=== PATIENT | male | born 1965 | race Caucasian/White ===

== ENCOUNTER 2016-05-02 12:02 | Emergency (ER) | payer OTHER ==
[~2016-05-02] VITALS: Ht 177.8 cm; Wt 99.9 kg
[2016-05-02 12:13] VITALS: TEMP 37.5; Ht 177.8 cm; Wt 99.9 kg
[2016-05-02 12:44] LABS: BASO % 0.2 %; BASO ABS # 0.02 K/uL (0-0.2); COMPLETE YES; EOS % 2.3 %; HEMATOCRIT 42.9 % (42-52); IG% 0.2 %; LYMPH % 12.4 %; LYMPH ABS # 1.32 K/uL (1.2-3.4); MEAN CELL VOLUME 90.7 fL (80-100); MEAN CORPUSCULAR HEMOGLOBIN 31.3 pg (25-34); MEAN CORPUSCULAR HGB CONC 34.5 g/dl (32-36); MEAN PLATELET VOLUME 10.8 fL (7.4-10.4); MONO % 8.6 %; NEUT % 76.3 %; PLATELET COUNT 242 K/uL (130-400); RED BLOOD COUNT 4.73 M/uL (4.7-6.1); WHITE BLOOD COUNT 10.61 K/uL (4.8-10.8)
[2016-05-02] MEDS ORDERED: METR-163 PO (12:46)
[2016-05-02] MEDS ORDERED: MOXI400T2 PO (12:46)
[2016-05-02 12:50] LABS: CALCIUM 8.4 mg/dl (8.5-10.1); CREATININE 0.92 mg/dl (0.60-1.40); POTASSIUM 3.6 mmol/L (3.5-5.1)
[2016-05-02] MEDS ORDERED: OPTIRAY 320 IV PRN (13:00)
[2016-05-02 13:19] LABS: URINE APPEARANCE CLEAR (CLEAR); URINE BILIRUBIN NEG (NEG); URINE COLOR YELLOW; URINE NITRITE NEG (NEG); URINE SPECIFIC GRAVITY 1.021 (1.000-1.030); UROBILINOGEN NEG (NEG); ZZUR CULT IF INDIC CLEAN CATCH NO
[2016-05-02 13:24] LABS: MANUAL MICROSCOPIC REQUIRED? NO; REVIEW REQ? NO
--- NOTE | 2016-05-02 13:28 | DIAGNOSTIC IMAGING REPORT ---
CT SCAN OF THE ABDOMEN AND PELVIS WITH IV CONTRAST CLINICAL HISTORY: Left lower quadrant abdominal pain. COMPARISON STUDY: No priors. TECHNIQUE: Following the IV administration of 93 cc of Optiray 320, CT scan of the abdomen and pelvis is performed from the lung bases to the proximal femora. Images are reviewed in the axial, sagittal, and coronal planes. IV contrast was administered without complication. Automated dose control exposure was utilized. CT DOSE: 653.33 mGy.cm FINDINGS: Lung bases: The heart is normal in size and without pericardial effusion. There is a small fat-containing umbilical hernia. There are coronary artery calcifications. The lung bases are clear noting dependent atelectasis. Liver: The contrast-enhanced liver is enlarged, measuring 19 cm in length. The liver demonstrates mildly diminished attenuation suggesting steatosis. Fatty sparing is noted adjacent to gallbladder fossa. There is no intrahepatic biliary ductal dilatation. The hepatic veins and portal veins are patent. Gallbladder: Unremarkable. Spleen: Normal in size and attenuation. Pancreas: Unremarkable. Adrenal glands: Unremarkable. Kidneys: The contrast enhanced kidneys demonstrate mild cortical atrophy and are without hydronephrosis. The kidneys enhance symmetrically. Parapelvic cysts are identified on the left. An exophytic cyst arising from the left lower pole measures up to 4.7 cm. Small nonobstructing calculi are present in the upper poles of both kidneys. Abdominal vasculature: The abdominal aorta is normal in course and caliber noting moderate atherosclerotic calcification. Bowel: The small bowel and colon are normal in course and caliber. There is moderate diverticulosis colonic diverticulosis. There is wall thickening with mild pericolonic inflammation and fluid seen involving the sigmoid colon. The appearance is consistent with acute diverticulitis. There is no definite organized fluid collection to indicate a diverticular abscess. Moderate colonic fecal retention is observed The appendix is surgically absent. Peritoneum: There is no intraperitoneal free air or abdominal ascites. Lymphadenopathy: None. Pelvic viscera: The bladder is decompressed and not well evaluated. The prostate and seminal vesicles are normal as imaged. Skeletal structures: No lytic or blastic lesions are seen. IMPRESSION: 1. There is moderate colonic diverticulosis with evidence of acute sigmoid diverticulitis. There is no intraperitoneal free air or evidence of diverticular abscess. 2. Small bilateral nonobstructing renal calculi are noted. 3. Hepatomegaly and mild hepatic steatosis. 4. Additional changes as above. Electronically signed by: Hansel Goode M.D. 05/02/2016 1:26 PM Dictated Date/Time: 05/02/2016 1:17 PM
[2016-05-02] MEDS ORDERED: HYDR-5688 PO (13:56)
[2016-05-02 13:57] VITALS: BP 136/83; PULSE 67; O2SAT 98
--- NOTE | 2016-05-02 13:58 | EMERGENCY ROOM VISIT NOTE ---
History First contact with patient: 12:21 Chief Complaint: ABDOMINAL PAIN Stated Complaint: ABD PAINS Nursing Triage Summary: I have a hx of diverticulitis. pain is in left abdomen. pain has increased today. I have an appointment with a surgeon on thursday. History of Present Illness The patient is a 50 year old male who presents to the Emergency Room with complaints of left lower quadrant abdominal pain. The patient reports he has a history of diverticulitis. He has been seeing a surgeon in [place] and is scheduled on Thursday for a consultation for possible surgery. The patient reports he has had recurrent diverticulitis. He called his surgeon yesterday due to the abdominal pain and the surgeon called him in a prescription for antibiotics. He started these medications last night. The patient does state he has a history of abscesses and perforations. He rates his discomfort a 6/ 10. He states he has had this abdominal pain for one week. He denies any fevers, changes in bowel movements, nausea or vomiting. Review of Systems A complete 10-point Review of Systems was discussed with the patient, with pertinent positives and negatives listed in the History of Present Illness. All remaining Review of Systems questions can be considered negative unless otherwise specified. Social History Smoking Status: Never Smoker Current/Historical Medications Scheduled Metronidazole (Flagyl), 500 MG PO Q8 Moxifloxacin Hcl (Avelox), 400 MG PO DAILY Scheduled PRN Hydrocodone/Acetaminophen 5MG/325MG ([place] 5MG/325MG), 1 TABLET PO Q4H PRN for Pain Allergies Coded Allergies: No Known Allergies (Unverified , 05/02/16) Physical Exam Vital Signs Date Time Temp Pulse Resp B/P Pulse Ox O2 Delivery O2 Flow Rate FiO2 05/02/16 13:57 67 20 136/83 98 Room Air 05/02/16 12:13 37.5 88 18 150/83 99 Room Air Physical Exam VITALS: Vitals are noted on the nurse's note and reviewed by myself. Vital signs stable. GENERAL: This is a 50-year-old male, in no acute distress, nondiaphoretic, well- developed well-nourished. SKIN: Capillary reflex less than 2 seconds. HEART: Regular rate and rhythm without murmurs gallops or rubs. LUNGS: Clear to auscultation bilaterally without wheezes, rales or rhonchi. No retractions or accessory muscle use. ABDOMEN: Positive bowel sounds x 4. Moderate tenderness to palpation of the left lower quadrant. No guarding or rebound tenderness. NEURO: Patient was alert and oriented to person place and time. Medical Decision & Procedures ER Provider Diagnostic Interpretation: CT SCAN OF THE ABDOMEN AND PELVIS WITH IV CONTRAST IMPRESSION: 1. There is moderate colonic diverticulosis with evidence of acute sigmoid diverticulitis. There is no intraperitoneal free air or evidence of diverticular abscess. 2. Small bilateral nonobstructing renal calculi are noted. 3. Hepatomegaly and mild hepatic steatosis. 4. Additional changes as above. Laboratory Results 05/02/16 12:20 Red Blood Count 4.73, Mean Corpuscular Volume 90.7, Mean Corpuscular Hemoglobin 31.3, Mean Corpuscular Hemoglobin Concent 34.5, Mean Platelet Volume 10.8, Neutrophils (%) (Auto) 76.3, Lymphocytes (%) (Auto) 12.4, Monocytes (%) (Auto) 8.6, Eosinophils (%) (Auto) 2.3, Basophils (%) (Auto) 0.2, Neutrophils # (Auto) 8.10, Lymphocytes # (Auto) 1.32, Monocytes # (Auto) 0.91, Eosinophils # (Auto) 0.24, Basophils # (Auto) 0.02 05/02/16 12:20 Test 05/02/16 12:20 05/02/16 12:58 White Blood Count 10.61 K/uL (4.8-10.8) Red Blood Count 4.73 M/uL (4.7-6.1) Hemoglobin 14.8 g/dL (14.0-18.0) Hematocrit 42.9 % (42-52) Mean Corpuscular Volume 90.7 fL (80-100) Mean Corpuscular Hemoglobin 31.3 pg (25-34) Mean Corpuscular Hemoglobin Concent 34.5 g/dl (32-36) Platelet Count 242 K/uL (130-400) Mean Platelet Volume 10.8 fL (7.4-10.4) Neutrophils (%) (Auto) 76.3 % Lymphocytes (%) (Auto) 12.4 % Monocytes (%) (Auto) 8.6 % Eosinophils (%) (Auto) 2.3 % Basophils (%) (Auto) 0.2 % Neutrophils # (Auto) 8.10 K/uL (1.4-6.5) Lymphocytes # (Auto) 1.32 K/uL (1.2-3.4) Monocytes # (Auto) 0.91 K/uL (0.11-0.59) Eosinophils # (Auto) 0.24 K/uL (0-0.5) Basophils # (Auto) 0.02 K/uL (0-0.2) RDW Standard Deviation 42.9 fL (36.4-46.3) RDW Coefficient of Variation 12.9 % (11.5-14.5) Immature Granulocyte % (Auto) 0.2 % Immature Granulocyte # (Auto) 0.02 K/uL (0.00-0.02) Anion Gap 10.0 mmol/L (3-11) Est Creatinine Clear Calc Drug Dose 112.5 ml/min Estimated GFR () 111.2 Estimated GFR (Non- 96.0 BUN/Creatinine Ratio 14.0 (10-20) Calcium Level 8.4 mg/dl (8.5-10.1) Total Bilirubin 0.7 mg/dl (0.2-1) Aspartate Amino Transf (AST/SGOT) 12 U/L (15-37) Alanine Aminotransferase (ALT/SGPT) 25 U/L (12-78) Alkaline Phosphatase 76 U/L (45-117) Total Protein 7.8 gm/dl (6.4-8.2) Albumin 3.8 gm/dl (3.4-5.0) Globulin 4.0 gm/dl (2.5-4.0) Albumin/Globulin Ratio 1.0 (0.9-2) Urine Color YELLOW Urine Appearance CLEAR (CLEAR) Urine pH 5.0 (4.5-7.5) Urine Specific [place] 1.021 (1.000-1.030) Urine Protein NEG (NEG) Urine Glucose (UA) NEG (NEG) Urine Ketones NEG (NEG) Urine Occult Blood NEG (NEG) Urine Nitrite NEG (NEG) Urine Bilirubin NEG (NEG) Urine Urobilinogen NEG (NEG) Urine Leukocyte Esterase TRACE (NEG) Urine WBC (Auto) 1-5 /hpf (0-5) Urine RBC (Auto) 0-4 /hpf (0-4) Urine Hyaline Casts (Auto) 1-5 /lpf (0-5) Urine Epithelial Cells (Auto) 5-10 /lpf (0-5) Urine Bacteria (Auto) NEG (NEG) Medical Decision Differential diagnosis includes diverticulitis, abscess, perforation, fistula, appendicitis, among others. The patient was evaluated as above. Labs were drawn and IV access was obtained. Imaging studies were performed and read by radiology as above. The patient declined analgesics. The patient was reassessed multiple times during their stay in the emergency department and remained in stable condition. The patient is a 50-year-old male who presents today complaining of left lower quadrant pain. Labs revealed no leukocytosis. Urinalysis was not suggestive of infection. The patient's temperature in triage was 37.5C, but I did recheck the temperature myself at 36.9C orally. I did review the patient's records from [facility]. He had a CT scan approximately 3 months ago which showed sigmoid diverticulitis with potential perforation and evidence of possible stump appendicitis. The patient reports that he has not been on antibiotics until yesterday. Due to these findings, I am concerned for possible abscess or perforation. Therefore, a repeat CT scan was ordered today. CT showed evidence of acute diverticulitis without evidence of abscess or perforation. The patient will continue his antibiotics at home. He was given a short course of [place]. He will follow-up with his surgeon as scheduled. Based on the patient's presentation, lab results, and imaging studies, I feel the patient is stable for outpatient treatment. The patient's case was reviewed with Dr. Olmos, ED attending physician, who agreed with my assessment and treatment plan. Discharge instructions were reviewed with the patient. The patient verbalized understanding of my assessment and treatment plan and was discharged home in good condition. Impression Primary Impression: Sigmoid diverticulitis Departure Information Dispostion Home / Self-Care Condition GOOD Prescriptions Hydrocodone/Acetaminophen 5MG/325MG ([place] 5MG/325MG) Tab 1 TABLET PO Q4H Y for Pain, #10 TAB For Initial Treatment Prov: Ynaelis Medina .MIGUEL ANGEL 05/02/16 Referrals No Doctor, Assigned (PCP) Patient Instructions My [facility] Additional Instructions You have been treated in the Emergency Department for Abdominal Pain and diverticulitis. Laboratory results and imaging studies have ruled out any emergent causes for your abdominal pain which would warrant admission or surgery. Continue the antibiotics as prescribed by your surgeon. Call your surgeon today and let him know you were in the emergency department. Keep your follow- up Thursday or follow up sooner. You have been prescribed [place] to be used for pain control. This is a narcotic medication. You cannot drive or consume alcohol while on this medicine. This medicine should only be used for pain that cannot be controlled with over-the- counter pain medicines. For pain control, you can use the following [id number] medicines (if >12 yo): - Regular strength (325mg/tab) Tylenol (acetaminophen) 2 tabs every 4-6 hours as needed. Do not exceed 12 tablets in a 24 hour period. Avoid taking more than 4 grams (4000 mg) of Tylenol per day. This includes any other sources of acetaminophen you may take on a regular basis. - Regular strength (200 mg/tab) Advil (ibuprofen) 1-2 tabs every 4-6 hours as needed. Do not exceed a dose of 3200 mg per day. Drink plenty of water and stay well hydrated. Return to the emergency department if your symptoms persist despite treatment plan outlined above or if you develop worsening abdominal pain, vomiting, fevers or any other new/concerning symptoms.
== END 2016-05-02 14:09 | disposition home or self-care (01) ==
LOC: C.EDB 12:04 → C.EDA 14:09
DX: K57.92 Diverticulitis of intestine, part unspecified, without perforation or abscess without bleeding (principal)